=== PATIENT | female | born 1950 | race Caucasian/White ===

== ENCOUNTER → 2016-09-06 | Outpatient (CLI) | payer OTHER ==
[~2016-09-06] MED LIST: ALBUAER19 INH; ALL180 PO; MOME100A INH; TRIA1SPR4 NAE
[2016-09-06 09:36] LABS: BASO % 0.3 %; BASO ABS # 0.02 K/uL (0-0.2); COMPLETE YES; EOS % 2.5 %; HEMATOCRIT 42.9 % (37-47); IG% 0.1 %; LYMPH ABS # 1.61 K/uL (1.2-3.4); MEAN CELL VOLUME 89.6 fL (80-100); MEAN CORPUSCULAR HEMOGLOBIN 30.5 pg (25-34); MEAN PLATELET VOLUME 9.7 fL (7.4-10.4); MONO % 6.6 %; NEUT % 66.5 %; PLATELET COUNT 244 K/uL (130-400); RED BLOOD COUNT 4.79 M/uL (4.2-5.4)
[2016-09-06 09:45] LABS: ALT/SGPT 19 U/L (12-78); AST/SGOT 14 U/L (15-37); BLOOD UREA NITROGEN 23 mg/dl (7-18); BUN/CREATININE RATIO 27.5 (10-20); CALCIUM 9.1 mg/dl (8.5-10.1); CARBON DIOXIDE 25 mmol/L (21-32); CHLORIDE 110 mmol/L (98-107); CHOLESTEROL 218 mg/dl (0-200); CREATININE 0.83 mg/dl (0.60-1.20); GLUCOSE 82 mg/dl (70-99); POTASSIUM 4.4 mmol/L (3.5-5.1); SODIUM 143 mmol/L (136-145); TRIGLYCERIDES 270 mg/dl (0-150); VERY LOW DENSITY LIPOPROT CALC 54 mg/dl
[2016-09-06 09:48] LABS: ALB/GLOB RATIO 1.3 (0.9-2); ALKALINE PHOSPHATASE 72 U/L (45-117); CHOLESTEROL/HDL RATIO 4.3; HDL CHOLESTEROL 51 mg/dl
== END | disposition home or self-care (01) ==
LOC: C.LAB 07:41
PROVIDERS: ATTEND Internal Medicine
DX: K50.90 Crohn's disease, unspecified, without complications (principal); E78.5 Hyperlipidemia, unspecified; E55.9 Vitamin D deficiency, unspecified; Z11.59 Encounter for screening for other viral diseases

== ENCOUNTER → 2016-10-08 | Outpatient (CLI) | payer OTHER ==
[~2016-10-08] MED LIST changes: +OPTIRAY 320 IV PRN
--- NOTE | 2016-10-08 14:10 | DIAGNOSTIC IMAGING REPORT ---
CT ABD/PELVIS IV CONTRAST ONLY (enterography study) CLINICAL HISTORY: N82.3 CROHN'S DISEASE COMPARISON STUDY: None. TECHNIQUE: Following the IV administration of 94 mL of Optiray-320, CT scan of the abdomen and pelvis was performed from the lung bases to the proximal femurs. Images are reviewed in the axial, sagittal, and coronal planes. IV contrast was administered without complication. A dose lowering technique was utilized adhering to the principles of ALARA. CT DOSE: 488.04 mGy.cm FINDINGS: Lower chest: There are basilar atelectatic changes present. Liver: The contrast-enhanced liver is normal in size, contour, and attenuation. There is no intrahepatic biliary ductal dilatation. The hepatic veins and portal veins are patent. Gallbladder: Unremarkable. Spleen: Normal in size and attenuation. Pancreas: There is fatty atrophy the pancreas. No focal masses are visualized. Adrenal glands: Unremarkable. Kidneys: There is symmetric renal cortical enhancement. The kidneys are normal in size without hydronephrosis. Bowel: There are no transition zones indicate bowel obstruction. There is a mildly dilated left mid abdominal small bowel loop containing fecal material. No focal transition is visualized this may indicate an element of stasis. There is colonic diverticulosis. There are no acute peridiverticular inflammatory changes. There are no findings to indicate acute appendicitis. There is submucosal fat hypertrophy with the terminal ileum, consistent with the clinical history of inflammatory bowel disease. There is also mild wall hyperenhancement the terminal ileum, consistent with inflammatory bowel disease. There is no significant stricturing. Peritoneum: There is no intraperitoneal free air or abdominal ascites. Vasculature: The abdominal aorta is normal in course and caliber. Adenopathy: None. Pelvic viscera: The bladder, and pelvic viscera are unremarkable. Skeletal structures: No destructive osseous lesions are seen. IMPRESSION: 1. Mild hyperenhancement of the terminal ileum with submucosal fat hypertrophy. The findings are consistent with the clinical diagnosis of Crohn's disease. No focal strictures are visualized 2. Borderline dilated small bowel loops demonstrating a feces sign. This may indicate stasis. No focal stricture at this level as visualized 3. Diverticulosis. No evidence of acute diverticulitis Electronically signed by: Momo Iqbal M.D. 10/08/2016 2:09 PM Dictated Date/Time: 10/08/2016 1:59 PM
== END | disposition home or self-care (01) ==
LOC: C.CTS 12:27
PROVIDERS: ATTEND Colon & Rectal Surgery
DX: N82.3 Fistula of vagina to large intestine (principal); K57.90 Diverticulosis of intestine, part unspecified, without perforation or abscess without bleeding

== ENCOUNTER → 2016-11-01 | Outpatient (CLI) | payer OTHER ==
[~2016-11-01] MED LIST changes: -OPTIRAY 320 IV PRN
--- NOTE | 2016-11-01 10:40 | DIAGNOSTIC IMAGING REPORT ---
SINGLE CONTRAST GASTROGRAFIN ENEMA CLINICAL HISTORY: Preoperative examination for hysterectomy. Reported history of Crohn's disease and chronic colovaginal fistula. COMPARISON STUDY: Abdominal CT dated 10/08/2016. TECHNIQUE: An abdominal tonnage compilation clerk radiograph was obtained. A rectal tube is placed and dilute Gastrografin is infused into the colon under gravity. Spot fluoroscopic images of the colon are obtained in multiple obliquities. Pre and postevacuation overhead radiographs are also acquired in multiple obliquities. FINDINGS: An abdominal tonnage compilation clerk radiograph shows a nonobstructed abdominal bowel gas pattern. No evidence of intraperitoneal free air is seen. There are no abnormal abdominal calcifications. The skeletal structures are osteopenic. The bony structures are grossly intact. The enema images show the colon is normal in caliber. There is moderate diverticular disease of the left colon. There is no evidence of apple core lesion on these single contrast images. There is no evidence of rectovaginal fistula as clinically queried. Fluoroscopy time: 1.8 minutes. Fluoroscopic images: 13 IMPRESSION: 1. There is no evidence of colovaginal fistula as clinically queried. 2. The colon is normal in caliber. There is no evidence of mass lesion on this single phase examination. 3. Moderate diverticular disease is noted in the left colon. Dictated: 11/01/2016 9:52 AM Transcribed: 11/01/2016 10:40 AM Jesus Electronically signed by: Zachery Anguiano M.D. 11/01/2016 10:41 AM Dictated Date/Time: 11/01/2016 9:52 AM
== END | disposition home or self-care (01) ==
LOC: C.RAD 08:37
PROVIDERS: ATTEND Colon & Rectal Surgery
DX: K57.30 Diverticulosis of large intestine without perforation or abscess without bleeding (principal)

== ENCOUNTER → 2017-01-28 | Outpatient (CLI) | payer OTHER ==
--- NOTE | 2017-01-28 14:33 | MAMMOGRAPHY REPORT ---
BILATERAL DIGITAL SCREENING MAMMOGRAM TOMOSYNTHESIS WITH CAD: 01/28/2017 CLINICAL HISTORY: Routine screening. Patient has no complaints. TECHNIQUE: Breast tomosynthesis in addition to standard 2D mammography was performed. Current study was also evaluated with a Computer Aided Detection (CAD) system. COMPARISON: Comparison is made to exams dated: 01/24/2016 mammogram, 11/29/2013 mammogram, 12/01/2014 mammogram, 11/25/2012 mammogram, 04/20/2010 mammogram, and 04/19/2009 mammogram - [facility]. BREAST COMPOSITION: There are scattered areas of fibroglandular density in both breasts. FINDINGS: No suspicious masses, calcifications, or areas of architectural distortion are noted in ei ther breast. There has been no significant interval change compared to prior exams. Scattered bilater al benign-appearing calcifications are not significantly changed. IMPRESSION: ACR BI-RADS CATEGORY 2: BENIGN There is no mammographic evidence of malignancy. A 1 year screening mammogram is recommended. The pa tient will receive written notification of the results. Approximately 10% of breast cancers are not detected with mammography. A negative mammographic report should not delay biopsy if a clinically suggestive mass is present. Jeanna Eldridge M.D. /:01/28/2017 07:48:29 Manager Assisted Living: Karmen Dunlap, [facility] letter sent: Normal 1/2 BI-RADS Code: ACR BI-RADS Category 2: Benign
== END | disposition home or self-care (01) ==
LOC: C.MAMM 07:30
PROVIDERS: ATTEND Internal Medicine
DX: Z12.31 Encounter for screening mammogram for malignant neoplasm of breast (principal)